=== PATIENT | male | born 1990 | race Hispanic/Latino ===

== ENCOUNTER 2025-11-11 23:40 | Inpatient (IN) | payer OTHER ==
[2025-11-12 00:37] LABS: Hematocrit 32.0 % (42.0-52.0); Hemoglobin 8.8 g/dL (14.0-18.0); Mean Corpuscular Hemoglobin 17.7 pg (27.0-31.0); Mean Corpuscular Volume 64.4 fL (78.0-98.0); Platelet Count 514 10x3/uL (130-400); Red Blood Cell (RBC) Count 4.97 mill/uL (4.70-6.10); White Blood Cell (WBC) Count 8.07 10x3/uL (4.8-10.8)
[2025-11-12 00:43] LABS: ALT (SGPT) 40 U/L (Less than 45); AST (SGOT) 27 U/L (11-34); Albumin 4.4 g/dL (3.1-4.5); Alkaline Phosphatase 81 U/L (40-110); Anion Gap 12 mmol/L (10-20); BUN (Urea Nitrogen) 16 mg/dL (8.9-20.6); Bilirubin, Total 0.5 mg/dL (0.3-1.2); Calc. Creatinine Clearance 0 mL/min (70-130); Calcium 9.4 mg/dL (7.8-10.44); Carbon Dioxide 26 mmol/L (22-29); Chloride 106 mmol/L (98-107); Globulin 3.1 g/dL (2.4-3.5); Glucose 128 mg/dL (70-105); Potassium 3.8 mmol/L (3.5-5.1); Sodium 140 mmol/L (136-145)
[2025-11-12] MEDS ORDERED: Ketorolac Tromethamine 30 MG (1 mL) VIAL ONE (00:46)
[2025-11-12 00:58] LABS: #Basophils 0.03 10x3/uL (0.0-0.2); #Eosinophils 0.13 10x3/uL (0.0-0.7); #Monocytes 0.52 10x3/uL (0.11-0.59); #Neutrophils 5.02 10x3/uL (1.40-6.50); %Basophils 0.4 % (0.0-1.0); %Eosinophils 1.6 % (0.0-10.0); %Lymphocytes 29.1 % (21.0-51.0); %Monocytes 6.4 % (0.0-10.0); %Neutrophils 62.3 % (42.0-75.0)
[2025-11-12 01:39] LABS: Anisocytosis SLIGHT = 6-15 cells HPF (0-5); Microcytosis SLIGHT = 6-15 cells HPF (0-5); Platelet Adequacy Comment Platelets Normal; Polychromasia SLIGHT = 2-3 cells HPF (0-2)
[2025-11-12] MEDS ORDERED: Ondansetron PF 4 MG/2 ML Vial IVP PRN (03:43)
[2025-11-12] MEDS ORDERED: Acetaminophen 325 MG TAB PO PRN (03:43)
[2025-11-12] MEDS ORDERED: Calcium Carbonate 500 MG ChewTAB PO PRN (03:43)
[2025-11-12] MEDS ORDERED: Guaifenesin DM 100-10/5 ML UDCUP PO PRN (03:43)
[2025-11-12 04:26] VITALS: BMI 35.2
[2025-11-12] MEDS ORDERED: Iopamidol-370 76% 500 ML MDV (1 ML CHARGE) ONE (08:57)
[2025-11-12 11:39] LABS: Iron 16 ug/dL (65-175); Iron Binding Capacity, Total 414 mcg/dL (261-462)
[2025-11-12] MEDS: GoLYTELY 4,000 ml Bottle PO SCH (17:05)
[2025-11-12] MEDS: Pantoprazole 40 MG VIAL IVP SCH (17:05)
[2025-11-13 05:06] LABS: #Basophils 0.04 10x3/uL (0.0-0.2); #Eosinophils 0.26 10x3/uL (0.0-0.7); #Monocytes 0.54 10x3/uL (0.11-0.59); #Neutrophils 3.52 10x3/uL (1.40-6.50); %Basophils 0.6 % (0.0-1.0); %Eosinophils 4.0 % (0.0-10.0); %Lymphocytes 32.7 % (21.0-51.0); %Monocytes 8.3 % (0.0-10.0); %Neutrophils 54.2 % (42.0-75.0); Hematocrit 32.4 % (42.0-52.0); Hemoglobin 8.8 g/dL (14.0-18.0); Mean Corpuscular Hemoglobin 18.0 pg (27.0-31.0); Mean Corpuscular Volume 66.1 fL (78.0-98.0); Platelet Count 473 10x3/uL (130-400); Red Blood Cell (RBC) Count 4.90 mill/uL (4.70-6.10); White Blood Cell (WBC) Count 6.49 10x3/uL (4.8-10.8)
[2025-11-13 05:36] LABS: Anion Gap 6 mmol/L (10-20); BUN (Urea Nitrogen) 11 mg/dL (8.9-20.6); Calc. Creatinine Clearance 154 mL/min (70-130); Calcium 8.8 mg/dL (7.8-10.44); Carbon Dioxide 27 mmol/L (22-29); Chloride 110 mmol/L (98-107); Glucose 109 mg/dL (70-105); Iron 15 ug/dL (65-175); Iron Binding Capacity, Total 376 mcg/dL (261-462); Potassium 3.9 mmol/L (3.5-5.1); Sodium 139 mmol/L (136-145)
[2025-11-13 05:38] LABS: Iron 17 ug/dL (65-175); Iron Binding Capacity, Total 379 mcg/dL (261-462)
[2025-11-13 05:49] LABS: Anisocytosis SLIGHT = 6-15 cells HPF (0-5); Microcytosis SLIGHT = 6-15 cells HPF (0-5); Platelet Adequacy Comment Platelets Normal; Polychromasia SLIGHT = 2-3 cells HPF (0-2)
[2025-11-13] MEDS ORDERED: Iopamidol 370 76% 100 ML VIAL ONE (10:16)
[2025-11-13] MEDS ORDERED: PROPOFOL 20 ML ONE (10:33)
[2025-11-13] MEDS ORDERED: GLYCOPYRROLATE/PF 0.2 MG/ML VIAL ONE (10:34)
[2025-11-13] MEDS ORDERED: PROPOFOL 40 ML ONE (10:36)
[2025-11-13] MEDS ORDERED: PROPOFOL 200 MG/20 ML VIAL ONE (10:52)
[2025-11-13] MEDS: Pantoprazole 40 MG VIAL IVP SCH ×2 (12:01→20:50)
[2025-11-13] MEDS: Sodium Ferric Gluconate 250 MG in Sodium Chloride 0.9% 250 ML 250 ML IVPB SCH (16:10)
[2025-11-13] MEDS: Sucralfate 1 GM TAB PO SCH (20:50)
[2025-11-13] MEDS: Mag-Al Plus 1200/1200/120 MG (30 mL) UDCUP PO SCH (22:23)
[2025-11-14 04:44] LABS: #Basophils 0.06 10x3/uL (0.0-0.2); #Eosinophils 0.31 10x3/uL (0.0-0.7); #Monocytes 0.58 10x3/uL (0.11-0.59); #Neutrophils 5.56 10x3/uL (1.40-6.50); %Basophils 0.7 % (0.0-1.0); %Eosinophils 3.4 % (0.0-10.0); %Lymphocytes 28.7 % (21.0-51.0); %Monocytes 6.3 % (0.0-10.0); %Neutrophils 60.7 % (42.0-75.0); Hematocrit 33.7 % (42.0-52.0); Hemoglobin 9.1 g/dL (14.0-18.0); Mean Corpuscular Hemoglobin 17.9 pg (27.0-31.0); Mean Corpuscular Volume 66.3 fL (78.0-98.0); Platelet Count 526 10x3/uL (130-400); Red Blood Cell (RBC) Count 5.08 mill/uL (4.70-6.10); White Blood Cell (WBC) Count 9.16 10x3/uL (4.8-10.8)
[2025-11-14 08:54] VITALS: BP 138/80; TEMP 97.7
[2025-11-18 17:38] LABS: Hemoglobin A2 1.7 % (1.8-3.2); Hemoglobin F 0 % (0.0-2.0); Hemoglobin S 0.0 % (0.0); Interpretation Note: (.)
== END 2025-11-14 11:18 | disposition home or self-care (01) | DRG 812 ==
LOC: ERS 23:40 → 2NO 11-12 02:59 → OBSVTOIN 11-14 10:43
PROVIDERS: ADMIT Internal Medicine; ATTEND Internal Medicine
PROC: 0DB68ZX Excision of Stomach, Via Natural or Artificial Opening Endoscopic, Diagnostic (ICD-10-PCS; principal; 2025-11-13)
PROC: 0DJD8ZZ Inspection of Lower Intestinal Tract, Via Natural or Artificial Opening Endoscopic (ICD-10-PCS; 2025-11-13)
DX: D50.9 Iron deficiency anemia, unspecified (principal); K25.9 Gastric ulcer, unspecified as acute or chronic, without hemorrhage or perforation; K31.9 Disease of stomach and duodenum, unspecified
CPT/HCPCS: 36415; 71045; 71275; 74177; 80048; 80053; 82274; 82728; 83010; 83021; 83540; 83550; 83615; 83880; 84484; 85025; 87338; 87428; 88305; 88341; 88342; 93005; 93306; 96374; 96375; G0378; J1885; J2470; J2704; J2916; J3490; J7050; Q9967